=== PATIENT | female | born 1955 | race Caucasian/White ===

== ENCOUNTER → 2021-08-19 | Outpatient (CLI) | payer MEDICARE ==
[~2021-08-19] MED LIST: CENTRUM SILVER1 EAC2 PO; CLARITIN10 MG PO; COLACE100 MG PO; CYCLOBENZAPRINE10 MG PO; FLEXERIL PO; HYDROCODONE-AP1 EAC6 PO; LISINOPRIL10 MG PO; MEDROLDOSEPACK PO; MUCINEX TA600 MG/TA2 PO; NORCO 10-325 T1 EACH PO; PRADAXA150 MG PO; PRILOSEC OTC20 MG PO; PROBIOTIC1 EAC1 PO; ULTRA-LIGHT RO1 EACH MC; VITAMINC500 PO
== END ==
LOC: M.RAD 08-13 09:12
PROVIDERS: ATTEND Family Medicine
DX: Z12.31 Encounter for screening mammogram for malignant neoplasm of breast (principal); M81.0 Age-related osteoporosis without current pathological fracture; Z78.0 Asymptomatic menopausal state